=== PATIENT | female | born 1985 | race Caucasian/White ===

== ENCOUNTER 2020-08-10 22:06 | Inpatient (IN) | payer OTHER ==
[~2020-08-10] VITALS: Ht 160 cm; Wt 85.4 kg
[2020-08-10 23:28] LABS: BILIRUBIN NEGATIVE (NEGATIVE); BLOOD 3+ Ery/uL (NEGATIVE); CLARITY CLOUDY (CLEAR); COLOR YELLOW (YELLOW); GLUCOSE (U) NORMAL (NORMAL); LEUKOCYTES 3+ Leu/uL (NEGATIVE); NITRITE POSITIVE (NEGATIVE); PROTEIN 2+ mg/dL (NEGATIVE)
[2020-08-10 23:31] LABS: BACTERIA 4+; URINARY WBC TNTC
[2020-08-10 23:32] LABS: SQUAMOUS EPITHELIAL CELLS RARE
[2020-08-11 00:22] LABS: BASOPHIL 0.2 % (0-2); EOSINOPHIL 0.1 % (0-5); HGB 13.6 g/dl (12.5-16.0); LYMPHOCYTE 5.4 % (15-48); MCH 29.6 pg (25.0-31.0); MPV 10.8 fL (6.0-9.5); NEUTROPHIL 86.8 % (41-80); NRBC 0; PLT 242 K/uL (150-400); RDW 12.4 % (11.5-14.0); WBC 14.5 K/uL (4.0-10.5)
[2020-08-11 00:43] LABS: ALBUMIN 3.6 g/dL (3.4-5.0); BILIRUBIN - TOTAL 0.6 mg/dL (0.2-1.0); BUN/CREAT RATIO (CALC) 14.5 RATIO; CREATININE 0.83 mg/dL (0.51-0.95); GLOBULIN (CALCULATION) 3.1 g/dL; POTASSIUM 3.8 mmol/L (3.5-5.1); TOTAL PROTEIN 6.7 g/dL (6.4-8.2)
[2020-08-11 01:19] LABS: CORONAVIRUS 2019 SARS-COV-2 NEGATIVE (NEGATIVE); INFLUENZA A NAA NEGATIVE (NEGATIVE)
[2020-08-11] MEDS ORDERED: SERTRALINE HCL50 MG PO (03:46)
[2020-08-12 06:17] LABS: BASOPHIL 0.3 % (0-2); EOSINOPHIL 0.1 % (0-5); HCT 32.8 % (37.0-47.0); HGB 11.1 g/dl (12.5-16.0); LYMPHOCYTE 4.2 % (15-48); MCH 29.7 pg (25.0-31.0); MCHC 33.8 g/dL (32.0-36.0); MCV 87.7 fL (78.0-100.0); MONOCYTE 8.6 % (0-12); NEUTROPHIL 86.4 % (41-80); NRBC 0; PLT 185 K/uL (150-400); RBC 3.74 M/uL (4.20-5.40); RDW 12.8 % (11.5-14.0); WBC 14.6 K/uL (4.0-10.5)
[2020-08-12 07:04] LABS: ALBUMIN 2.3 g/dL (3.4-5.0); BILIRUBIN - TOTAL 0.6 mg/dL (0.2-1.0); BUN/CREAT RATIO (CALC) 10.5 RATIO; CREATININE 0.57 mg/dL (0.51-0.95); GLOBULIN (CALCULATION) 3.4 g/dL; POTASSIUM 3.3 mmol/L (3.5-5.1); TOTAL PROTEIN 5.7 g/dL (6.4-8.2)
[2020-08-13 06:00] LABS: HCT 31.1 % (37.0-47.0); HGB 10.7 g/dl (12.5-16.0); MCH 29.8 pg (25.0-31.0); MCHC 34.4 g/dL (32.0-36.0); MCV 86.6 fL (78.0-100.0); MPV 11.1 fL (6.0-9.5); RBC 3.59 M/uL (4.20-5.40); RDW 12.5 % (11.5-14.0); WBC 10.3 K/uL (4.0-10.5)
[2020-08-13 06:14] LABS: BUN/CREAT RATIO (CALC) 9.7 RATIO; CREATININE 0.62 mg/dL (0.51-0.95); POTASSIUM 3.8 mmol/L (3.5-5.1)
[2020-08-14 05:43] LABS: HCT 30.8 % (37.0-47.0); HGB 10.3 g/dl (12.5-16.0); MCH 29.3 pg (25.0-31.0); MCHC 33.4 g/dL (32.0-36.0); MCV 87.7 fL (78.0-100.0); MPV 10.2 fL (6.0-9.5); RBC 3.51 M/uL (4.20-5.40); WBC 7.5 K/uL (4.0-10.5)
[2020-08-14 06:39] LABS: CREATININE 0.63 mg/dL (0.51-0.95); POTASSIUM 3.4 mmol/L (3.5-5.1)
[2020-08-14] MEDS ORDERED: PEPCID AC20 MG PO (11:25)
[2020-08-14] MEDS ORDERED: ROCEPHIN 1GM1 GM IV (11:25)
[2020-08-14] MEDS ORDERED: ZOFRAN4 M1 PO (11:26)
== END 2020-08-14 12:36 | disposition home or self-care (01) | DRG 872 ==
LOC: FER 22:06 → FMS 08-11 03:05
PROVIDERS: Emergency Medicine Emergency Medical Services; Nurse Practitioner; ADMIT Hospitalist
PROC: 05HY33Z Insertion of Infusion Device into Upper Vein, Percutaneous Approach (ICD-10-PCS; principal; 2020-08-12)
DX: A41.51 Sepsis due to Escherichia coli [E. coli] (principal); N30.01 Acute cystitis with hematuria; N10 Acute pyelonephritis; E87.6 Hypokalemia; Z20.822 Contact with and (suspected) exposure to COVID-19; F41.9 Anxiety disorder, unspecified; Z90.49 Acquired absence of other specified parts of digestive tract; Z90.89 Acquired absence of other organs
CPT/HCPCS: 36415; 71045; 80048; 80053; 81001; 83605; 83690; 84145; 85025; 87040; 87076; 87077; 87088; 87186; 93005; 94010; C1751; J0692; J0696; J1170; J1642; J1885; J2270; J2405; J7030; U0002